=== PATIENT | female | born 1950 ===

== ENCOUNTER 2019-11-22 03:19 | Inpatient (IN) | payer MEDICARE, BC ==
[~2019-11-22] VITALS: Ht 154.9 cm; Wt 68.0 kg
--- NOTE | 2019-11-22 03:30 | NUR ---
Patient BIB [facility] from home due to calling 911 due low Blood sugar and AMS. On the field RA glucometer machine read LOW meaning blood sugar was below 20. Patient was given D10 ivp on the field and blood sugar came up in the 200's. Patient upon arrival A/Ox3. Patient was wheezing also on the field which RA gave a unit of albuterol HHN.
[2019-11-22] MEDS ORDERED: IBUP-1955 PO (03:39)
[2019-11-22] MEDS ORDERED: REPA1TAB7 PO (03:39)
[2019-11-22] MEDS ORDERED: TRIA0.1232 PO (03:39)
[2019-11-22] MEDS ORDERED: EMPA25TA PO (03:39)
[2019-11-22] MEDS ORDERED: SIMV-49 PO (03:39)
[2019-11-22] MEDS ORDERED: SITA100T PO (03:39)
[2019-11-22] MEDS ORDERED: GABA800T11 PO (03:39)
[2019-11-22] MEDS ORDERED: VALS80TA31 PO (03:39)
[2019-11-22] MEDS ORDERED: ASPI81TA31 PO (03:39)
[2019-11-22] MEDS ORDERED: METO25TA6 PO (03:39)
[2019-11-22] MEDS ORDERED: IV NORMAL SALINE 1000 ML BAG IV ONE (03:45)
[2019-11-22 04:06] LABS: BASOPHILS % (AUTO) 0.2 % (0.0-2.0); EOSINOPHILS % (AUTO) 0.1 % (0.0-7.0); HEMATOCRIT 35.4 % (31.2-41.9); HEMOGLOBIN 11.8 g/dL (10.9-14.3); LYMPHOCYTES # (AUTO) 0.6 K/uL (20.0-40.0); LYMPHOCYTES % (AUTO) 9.2 % (20.5-51.5); MEAN CORPUSCULAR HEMOGLOBIN 26.3 uug (24.7-32.8); MEAN CORPUSCULAR HGB CONC 33 g/dL (32.3-35.6); MEAN CORPUSCULAR VOLUME 79.1 fL (75.5-95.3); MONOCYTES # (AUTO) 0.3 K/uL (2.0-10.0); MONOCYTES % (AUTO) 4.2 % (0.0-11.0); NEUTROPHILS # (AUTO) 6.1 K/uL (1.8-8.9); NEUTROPHILS % (AUTO) 86.3 % (38.5-71.5); PLATELET COUNT (AUTO) 118 K/uL (179-408); RED BLOOD CELL COUNT(AUTO) 4.48 MIL/uL (3.63-4.92)
[2019-11-22 04:17] LABS: BILIRUBIN,DIRECT 0.2 mg/dL (0.0-0.2); BILIRUBIN,TOTAL 0.5 mg/dL (0.2-1.0); POTASSIUM 2.9 mmol/L (3.5-5.1); TOTAL PROTEIN, SERUM 6.5 g/dL (6.4-8.2)
[2019-11-22 04:25] LABS: CREATININE 1.7 mg/dL (0.6-1.3)
[2019-11-22] MEDS ORDERED: POTASSIUM CHLORIDE 20 MEQ TAB.PRT.SR PO ONE (04:30)
[2019-11-22] MEDS ORDERED: POTASSIUM CHLORIDE 20 MEQ TAB.PRT.SR ONE (04:31)
--- NOTE | 2019-11-22 04:59 | NUR ---
Suzan ORDONEZ CALLED BACK ([facility])
[2019-11-22] MEDS ORDERED: DEXTROSE 50% 50 ML DISP.SYRIN ONE (05:00)
[2019-11-22] MEDS ORDERED: DEXTROSE 50% 50 ML DISP.SYRIN IV ONE (05:00)
--- NOTE | 2019-11-22 05:00 | NUR ---
Patient Accu check is 47. Patient is asymptomatic. Dr Garduno aware.
[2019-11-22] MEDS ORDERED: IV D5/ 0.9% NACL 1,000 ML IV ONE ×2 (05:01→07:00)
--- NOTE | 2019-11-22 05:10 | NUR ---
Dr Garduno speaking with Kris Soto DNP color control supervisor for [employer] panel.
--- NOTE | 2019-11-22 05:14 | NUR ---
2nd Liter of D5 NS D/C'ed by Dr Garduno. Dr Garduno only ordered 1 Liter of D5 NS.
--- NOTE | 2019-11-22 06:25 | NUR ---
Transfered to 3rd floor Tele via [employer].
[2019-11-22 06:49] VITALS: BP 114/60
--- NOTE | 2019-11-22 07:00 | NUR ---
69 year old female admitted to room 319 for ams.pt is axox4 brp vs are stable call light with in reach ,orient the pt to room and surroundings. at bed side
[2019-11-22] MEDS ORDERED: METF-440 PO (07:35)
[2019-11-22] MEDS ORDERED: BROM2.5T15 PO (07:35)
[2019-11-22 11:08] VITALS: BP 111/58
[2019-11-22] MEDS ORDERED: ZOLPIDEM 5 MG TABLET PO PRN (12:30)
[2019-11-22] MEDS ORDERED: MAGNESIUM HYDROXIDE 30 ML LIQUID UDC PO PRN (12:30)
[2019-11-22] MEDS ORDERED: ACETAMINOPHEN 325 MG TABLET PO PRN (12:30)
[2019-11-22] MEDS ORDERED: Z GUARD REMEDY PASTE 57 GM TUBE TOP PRN (12:30)
[2019-11-22] MEDS ORDERED: ONDANSETRON 4 MG/2 ML VIAL IV PRN (12:30)
[2019-11-22] MEDS ORDERED: HYDROCODONE/APAP 5-325MG TABLET PO PRN (12:30)
[2019-11-22] MEDS ORDERED: DEXTROSE 50% 50 ML DISP.SYRIN IV PRN (12:45)
[2019-11-22] MEDS ORDERED: INSULIN REGULAR, HUMAN 300 UNIT/3 ML VIAL SQ PRN (12:45)
[2019-11-22 15:10] VITALS: BP 163/82
[2019-11-22] MEDS ORDERED: METOPROLOL TARTRATE 25 MG TABLET PO SCH (15:50)
[2019-11-22] MEDS ORDERED: VALSARTAN 80 MG TABLET PO SCH (15:51)
[2019-11-22] MEDS ORDERED: IV D5/ 0.9% NACL 1,000 ML IV PRN (16:00)
[2019-11-22] MEDS ORDERED: GUAIFENESIN SUGAR FREE 100 MG/5 ML UDC PO PRN (16:45)
[2019-11-22] MEDS ORDERED: GABAPENTIN 300 MG CAPSULE PO SCH (17:00)
[2019-11-22] MEDS: BLOOD SUGAR DIAGNOSTIC 1 EACH STRIP VI SCH ×2 (17:09→20:38)
--- NOTE | 2019-11-22 19:30 | NUR ---
RECEIVED PT AWAKE, ALERT AND ORIENTEDX4. AT BEDSIDE. PT IN NO ACUTE DISTRESS. IV INTACT. SAFETY AND COMFORT PROVIDED. WILL CONTINUE TO MONITOR.
[2019-11-22 20:31] VITALS: BP 129/63
--- NOTE | 2019-11-22 22:30 | NUR ---
PT DISCHARGED VIA WHEELCHAIR. PT IN NO ACUTE DISTRESS. PT VITAL SIGNS WITHIN NORMAL LIMIT. SAFETY AND COMFORT PROVIDED. IV TAKEN OFF AND WRIST BAND TAKEN OFF. DISCHARGE PAPERS AND INSTRUCTIONS GIVEN. PT UNDERSTAND THE INSTRUCTIONS. INSTRUCT THE SON TO GET THE MEDICATIONS IN NURSING STATION [facility]. STAFF WHEELED THE PT .
[2019-11-23] MEDS ORDERED: ASPIRIN 81 MG TAB.CHEW PO SCH (09:00)
[2019-11-23] MEDS ORDERED: BROMOCRIPTINE MESYLATE 2.5 MG PO SCH (09:00)
[2019-11-23] MEDS ORDERED: Medication Not On Formulary EA (Bromocriptine Mesylate 2.5 MG) PO SCH (09:00)
[2019-11-23] MEDS ORDERED: SIMVASTATIN 40 MG TABLET PO SCH (09:00)
== END 2019-11-22 22:30 | disposition home or self-care (01) | DRG 637 ==
LOC: ER 03:22 → TELE3 06:12
PROVIDERS: ADMIT Hospitalist; ATTEND Hospitalist
DX: E11.649 Type 2 diabetes mellitus with hypoglycemia without coma (principal); G93.41 Metabolic encephalopathy; E87.1 Hypo-osmolality and hyponatremia; E44.1 Mild protein-calorie malnutrition; E87.6 Hypokalemia; T38.3X5A Adverse effect of insulin and oral hypoglycemic [antidiabetic] drugs, initial encounter; Z79.84 Long term (current) use of oral hypoglycemic drugs; Y92.019 Unspecified place in single-family (private) house as the place of occurrence of the external cause; I25.10 Atherosclerotic heart disease of native coronary artery without angina pectoris; I10 Essential (primary) hypertension; J45.909 Unspecified asthma, uncomplicated; K21.9 Gastro-esophageal reflux disease without esophagitis; E86.0 Dehydration; N17.0 Acute kidney failure with tubular necrosis; Z79.82 Long term (current) use of aspirin; Z95.1 Presence of aortocoronary bypass graft; Z85.819 Personal history of malignant neoplasm of unspecified site of lip, oral cavity, and pharynx; Z92.3 Personal history of irradiation; Z82.49 Family history of ischemic heart disease and other diseases of the circulatory system; E78.5 Hyperlipidemia, unspecified; Z79.899 Other long term (current) drug therapy; D69.6 Thrombocytopenia, unspecified
CPT/HCPCS: 36415; 70030-TC; 71045; 83690; 85025; 93005; 93307; A4663; G0378; J1815; J3490; J7030; J7042